=== PATIENT | male | born 1975 | race Caucasian/White ===

== ENCOUNTER 2018-12-01 11:57 | Emergency (ER) | payer SELFPAY ==
[2018-12-01 12:02] VITALS: BP 139/85; PULSE 75; RESP 17; TEMP 37.1; O2SAT 97; BMI 34.4
--- NOTE | 2018-12-01 12:29 | US_ITS ---
STUDY: SCROTUM ULTRASOUND REASON FOR EXAM: Male, 43 years old. Testicular pain and swelling TECHNIQUE: Ultrasound evaluation of the scrotum was performed with color Doppler and static fuller-scale imaging. COMPARISON: None. FINDINGS: RIGHT TESTICLE INTRATESTICULAR: There is a normal size of the right testicle. The right testicle measures 4.6 x 3.1 x 2.5 cm. There is a homogenous echotexture. There is normal arterial and normal venous vascularity. There is no demonstrated right testicular mass or cyst. EXTRATESTICULAR: The epididymis is normal in size. The epididymis head measures 1.3 x 1.2 cm. There is normal vascularity of the epididymis. There is a 0.6 cm epididymal cyst. There is a moderate size hydrocele. There is no demonstrated varicocele. There is no demonstrated extratesticular mass or cyst. LEFT TESTICLE INTRATESTICULAR: There is a normal size of the left testicle. The left testicle measures 4.9 x 3.3 x 2.4 cm. There is a homogenous echotexture. There is normal arterial and normal venous vascularity. There is no demonstrated left testicular mass or cyst. EXTRATESTICULAR: The epididymis is normal in size. The epididymis head measures 1.4 x 1.1 cm. There is normal vascularity of the epididymis. There is a 0.6 cm epididymal cyst. There is a moderate size hydrocele. There is no demonstrated varicocele. There is no demonstrated extratesticular mass or cyst. US/Testicular with Arterial Flow IMPRESSION: Normal bilateral testicles with normal Doppler flow. Bilateral moderate hydroceles. Bilateral subcentimeter epididymal cysts. Electronically Signed: Panfilo Strickland, at 15:05 EDT Tel , Service support ,
--- NOTE | 2018-12-01 12:30 | ED.VISSUMM ---
- ER Visit Summary Date of Service: 12/01/18 Chief Complaint: Right groin lump and testicular discomfort and rash History of Present Illness: The patient is a 43 M with significant past medical history other than prior right lower leg fracture with surgery. 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 States she is had hematuria microscopically for last 2 years which she has not followed up to have any further evaluation. He also had a rash in his lower abdomen groin and buttock for a lengthy period of time and has not had that evaluated. Also complaining of right testicular pain for approximately a month. He thinks he feels a lump in his right groin. Denies any dysuria. Does state he urinates frequently. Physical Examination: Middle-aged male no acute distress vital signs are stable afebrile. HEENT exam is unremarkable. Neck is nontender no lymphadenopathy. Lungs clear to auscultation. Heart regular rhythm no murmur. Abdomen soft nontender normal bowel sounds no peritoneal signs. External exam he appears to have a spontaneously reducible right groin hernia. Left inguinal canal is unremarkable. His right testicle is mildly tender with mild swelling of the right hemiscrotum. Left is nontender. He also has a tinea skin infection of his groin and buttocks. Moving all 4 extremities. Neurovascular intact. Back is nontender. Neurologically is awake alert with no focal motor deficits. Test Results: CBC shows no acute abnormalities normal white count 7. BMP shows no acute abnormality with normal creatinine and gap. Blood sugar 124. UA shows endoscopic hematuria which she has had in the past but no signs of infection. Testicular ultrasound unremarkable. Bilateral normal testicles. Moderate hydroceles bilaterally. Emergency Department Course and Treatment: Patient's hematuria will be evaluated. Do screening labs due to his polyuria. Ultrasound of his testicle due to the swelling. Treatment Plan: Repeat exam patient is doing well at 1521. Discussed the possibility of him having a early right inguinal hernia and follow-up with a local general surgeon. Placed on Lotrimin cream for his yeast infection. Disposition: Discharge Impression: Tinea cruris Right inguinal hernia This note was generated with [employer] dictation software. It may contain incorrect words, spelling, and punctuation that were not noted in review of the chart prior to signing ED Disposition - Plan for ED Patient: Referrals: Care Physician,No Primary [Primary Care Provider] -
[2018-12-01 12:51] LABS: Basophil# 0.04 X10^3/uL; Basophil% 0.5 % (0-1); Eosinophils% 1.3 % (0-5); Hematocrit 48.2 % (40-54); Hemoglobin 17.1 g/dL (13.0-16.5); Lymphocyte % 25.5 % (19-41); Mean Corp Hgb Conc 35.5 g/dL (32-36); Mean Corpuscular Hgb 33.3 pg (27.0-32.0); Mean Corpuscular Volume 93.8 fL (80-94); Mean Platelet Vol. 9.1 fl (6.2-12.0); Monocyte# 0.36 X10^3/uL; Monocyte% 4.8 % (0-10); NRBC Flagged by Analyzer 0 % (0-5); Neutrophil # 5.02 X10^3/uL (2.7-7.7); Neutrophil % 67.5 % (47-70); Platelet Count 158 K/mm3 (150-450); RBC Distribution Width CV 12.1 % (11.6-14.6); Red Blood Count 5.14 M/mm3 (4.6-6.2); White Blood Count 7.5 K/mm3 (4.4-11.0)
[2018-12-01 13:00] LABS: Anion Gap 5 (5-15); BUN 10 mg/dL (7-18); BUN/Creat Ratio 8.7 RATIO (10-20); Chloride 106 mmol/L (98-107); Creatinine, Serum 1.15 mg/dL (0.70-1.30); EST Glomerular Filtration Rate 73 mL/min (>60); Est Glom Filt Rate - Afr Amer 89 mL/min (>60); Estimated Creatinine Clearance 84.64 ml/min; Glucose 124 mg/dL (74-106); Potassium 3.9 mmol/L (3.5-5.1); Sodium Level 141 mmol/L (136-145)
[2018-12-01 13:26] LABS: Bacteria 0 SEEN /hpf (None Seen); Mucous, Urine 0 SEEN /hpf (<or=2+); Squamous Epithelial Cells - UA 0 SEEN /hpf (0-5); White Blood Cells 0 SEEN /hpf (0-5)
[2018-12-01 13:32] LABS: Color, Urine Yellow (Yellow); Glucose, Dipstick Normal (Normal); Ketone-Dipstick Negative (Negative); Leukocyte Esterase-Dipstick Negative /ul (Negative); Nitrite-Dipstick Negative (Negative); Occult Blood-Urine 25 /ul (Negative); Protein-Dipstick Negative (Negative); Specific Gravity, Urine 1.015 (1.002-1.030); Urine Bilirubin Dipstick Negative (Negative); Urine Clarity Clear (Clear); Urine Urobilinogen Normal (Normal)
[2018-12-01 13:40] LABS: Red Blood Cells-Urine 0-5 SEEN /hpf (0-5)
[2018-12-01 15:18] VITALS: BP 134/93; PULSE 57; RESP 16; TEMP 36.8; O2SAT 97
--- NOTE | 2018-12-01 15:23 | ED.DEP ---
ED Disposition - Plan for ED Patient: Disposition: Home or Assisted Living Instructions: TINEA CRURIS, Jock Itch, HERNIA (Inguinal, Ventral, Umbilical) Prescriptions: Clotrimazole [Lotrimin AF] 30 gm TP BID #1 cream..g. Prescription Printed Referrals: Jaime Miner MD [STAFF PHYSICIAN] - 1-2 Weeks Noman Jaeger MD [STAFF PHYSICIAN] - 1-2 Weeks Additional Instructions: Keep your groin area clean and dry. Apply the antifungal cream twice a day. Should take care of the skin yeast infection. I believe you may have a right groin hernia and follow-up with Dr. Noman Jaeger for evaluation and possible hernia repair.
== END 2018-12-01 15:32 | disposition home or self-care (01) ==
PROVIDERS: Emergency Provider Emergency Medicine
DX: K40.90 Unilateral inguinal hernia, without obstruction or gangrene, not specified as recurrent (principal); B35.6 Tinea cruris; N50.811 Right testicular pain; Z72.0 Tobacco use
CPT/HCPCS: 76870; 80048; 81001; 85025; 93976; 99284; A4216

== ENCOUNTER → 2019-03-21 16:00 | Outpatient (CLI) | payer OTHER, SELFPAY ==
--- NOTE | 2019-03-21 16:06 | CT_ITS ---
STUDY: CT ABDOMEN AND PELVIS WITH AND WITHOUT CONTRAST REASON FOR EXAM: Male, 43 years old. Microscopic hematuria, right sided pain x months RADIATION DOSAGE (If Supplied By Facility): CTDIvol = ( 20.69 ) mGy, DLP = ( 2112.73 ) mGycm TECHNIQUE: Transaxial images were obtained from the dome of the diaphragm to the symphysis pubis without oral contrast. IV 100 ML ISOVUE 370 was administered. Sagittal and coronal images were reconstructed. Individualized dose optimization techniques were used for this CT. COMPARISON: None. FINDINGS: The visualized lung bases are unremarkable. The visualized portions of the heart are within normal limits. Liver is fatty infiltrated without mass or bile duct dilatation. Normal gallbladder and extrahepatic biliary system. Normal spleen. Normal pancreas. Normal bilateral adrenal glands. No evidence for renal obstruction or ureteral calculus. There is a small cyst in left kidney measuring approximately 7 mm Normal visualized stomach. Normal small intestine. Normal colon. The appendix is visualized and appears normal. Minor atherosclerotic changes of the aorta without evidence for aneurysm. Normal inferior vena cava. Normal retroperitoneum. Normal urinary bladder. Normal abdominal wall. Lumbar spine demonstrates mild spondylosis. CT/CT Abd/Pelvis W/WO Contrast IMPRESSION: No acute abnormalities. No evidence for renal obstruction or ureteral calculus Small left renal cyst. Nonspecific fatty infiltration of the liver. Electronically Signed: Adrián Panda MD at 16:42 EST , Service support ,
== END ==
PROVIDERS: Referring Provider Nurse Practitioner Adult Health; Visit Provider Nurse Practitioner Adult Health
DX: R31.29 Other microscopic hematuria (principal)
CPT/HCPCS: 74178; Q9967